=== PATIENT | male | born 1945 | race Caucasian/White ===

== ENCOUNTER → 2019-08-17 | Outpatient (CLI) | payer MEDICARE ==
[~2019-08-17] MED LIST: ASPI81CH; ATOR80; FAMO20; LOSA50; METO25; SERT100
[2019-08-18 14:06] LABS: Stool Occult Bld Immuno 1 Negative (NEGATIVE)
== END ==
LOC: LAB EV 08:00
PROVIDERS: Physician Assistant
DX: R10.13 Epigastric pain (principal)
CPT/HCPCS: 82274; 87338

== ENCOUNTER 2021-11-11 06:24 | Day surgery (SDC) | payer MEDICARE ==
[~2021-11-11] VITALS: Ht 180.3 cm; Wt 88.9 kg
[~2021-11-11 06:24] MED LIST changes: +AMIT25 PO; +ATOR80 PO; +Aspir 8181 MG PO; +LOSARTAN POTAS100 M1 PO; +LOSARTAN POTASS50 M1 PO; +Lopressor 25 mg25 MG PO; +MOBIC15 MG PO; +Norco 10-325 T1 EACH PO; +OMEP20ER PO; +PAROEX473 ML; +SERT100 PO; +SERT25 PO; +ZOLP10 PO
[2021-11-11] MEDS ORDERED: Vitamin D1000 UNI1 PO (06:40)
--- NOTE | 2021-11-11 06:49 | NUR ---
11/11/21 0649 LAKSHMI ARGUETA TETRACAINE DROP INSTILLED AT 0639. PLEDGETT INSERTED AT 0641.
== END 2021-11-11 08:13 | disposition home or self-care (01) ==
LOC: ORSCSDS 06:24
PROVIDERS: Ophthalmology
PROC: 08RK3JZ Replacement of Left Lens with Synthetic Substitute, Percutaneous Approach (ICD-10-PCS; principal; 2021-11-11 07:30)
DX: H25.13 Age-related nuclear cataract, bilateral (principal); I10 Essential (primary) hypertension; I25.10 Atherosclerotic heart disease of native coronary artery without angina pectoris; G47.30 Sleep apnea, unspecified; Z79.899 Other long term (current) drug therapy
CPT/HCPCS: J2001; J2250; J3010; J3301; J7040; V2632

== ENCOUNTER 2021-11-19 13:39 | Emergency (ER) | payer OTHER, MEDICARE ==
[~2021-11-19] VITALS: Ht 182.9 cm; Wt 86.2 kg
[~2021-11-19 13:39] MED LIST changes: +Vitamin D1000 UNI1 PO
[2021-11-19 14:03] LABS: PCO2 Venous 38.9 mmHg (38-42); pH Blood Venous 7.38 (7.34-7.37)
[2021-11-19 14:22] LABS: BASOPHILS ABSOLUTE AUTO 0.05 K/mm3 (0.00-0.23); BASOPHILS PERCENT AUTO 1 % (0-2); EOSINOPHILS ABSOLUTE AUTO 0.27 K/mm3 (0.00-0.68); EOSINOPHILS PERCENT AUTO 4 % (0-6); Hematocrit 41.6 % (37.0-53.0); Hemoglobin 13.9 g/dL (13.5-17.5); IMMATURE GRAN ABSOLUTE AUTO 0.06 K/mm3 (0.00-0.10); IMMATURE GRAN PERCENT AUTO 1 % (0-1); LYMPHOCYTES ABSOLUTE AUTO 2.24 K/mm3 (0.84-5.20); LYMPHOCYTES PERCENT AUTO 30 % (21-46); MONOCYTES ABSOLUTE AUTO 0.74 K/mm3 (0.16-1.47); MONOCYTES PERCENT AUTO 10 % (4-13); Mean Corpuscular HGB 32.9 pg (26.0-34.0); Mean Corpuscular HGB Conc 33.4 g/dL (31.5-36.5); Mean Corpuscular Volume 98 fL (80-100); Mean Platelet Volume 10.1 fL (9.1-12.4); NEUTROPHILS ABSOLUTE AUTO 4.03 K/mm3 (1.96-9.15); NEUTROPHILS PERCENT AUTO 55 % (41-73); Platelet Count 132 K/mm3 (150-400); RDW Standard Deviation 43.6 fL (35.1-46.3); Red Blood Cell Count 4.23 M/mm3 (4.30-5.90); White Blood Cell Count 7.39 K/mm3 (4.00-11.30)
[2021-11-19 14:32] LABS: International Normalized Ratio 1.03; Prothrombin Time Results 10.8 Sec (9.7-11.5)
[2021-11-19 14:44] LABS: Ethanol (Alcohol), Blood, Med <3 mg/dL
[2021-11-19 14:49] LABS: Alanine Aminotransfer (ALT/SGP 70 U/L (12-78); Albumin, Blood 3.9 g/dL (3.4-5.0); Albumin/Globulin Ratio 1.1 (0.8-1.8); Alk Phos 72 U/L (50-136); Anion Gap 5 mmol/L (6-16); Aspartate Aminotrans (AST/SGOT 57 U/L (12-37); Bilirubin, Total 1.1 mg/dL (0.1-1.0); Blood Urea Nitrogen 35 mg/dL (8-24); Bun/Creatinine Ratio 31.5 (12.0-20.0); CO2, Blood 25 mmol/L (21-32); Calcium, Blood 8.5 mg/dL (8.5-10.1); Chloride, Blood 105 mmol/L (98-108); Creatinine, Blood 1.11 mg/dL (0.60-1.20); Globulin, Blood 3.7 g/dL (2.2-4.0); Glomerular Filtration Rate >60 (60-); Glucose, Blood 145 mg/dL (70-99); Potassium, Blood 5.1 mmol/L (3.5-5.5); Sodium, Blood 135 mmol/L (136-145); Total Protein, Blood 7.6 g/dL (6.4-8.2)
--- NOTE | 2021-11-19 15:31 | NUR ---
Responding to Trauma. Pt. is unconscious and is being treated. Assisted in coordinating NOK and family with Pts. belongings, which were being handled by nursing staff. Escorted family to [facility]. Further spiritual care was declined.
== END 2021-11-19 14:45 | disposition short-term general hospital (02) ==
LOC: ER 13:39
PROVIDERS: Emergency Medicine
DX: S06.6X9A Traumatic subarachnoid hemorrhage with loss of consciousness of unspecified duration, initial encounter (principal); S02.40FA Zygomatic fracture, left side, initial encounter for closed fracture; S02.842A Fracture of lateral orbital wall, left side, initial encounter for closed fracture; V09.9XXA Pedestrian injured in unspecified transport accident, initial encounter
CPT/HCPCS: 31500; 51702; 70450; 70486; 71045; 71260; 72125; 72170; 74177; 80053; 82803; 83605; 83690; 85025; 85610; 86850; 86900; 86901; 94002; G0480; J0330; J2704; Q9967